=== PATIENT | female | born 1995 | race Caucasian/White ===

== ENCOUNTER 2021-03-04 10:55 | Emergency (ER) | payer OTHER ==
[~2021-03-04 10:55] MED LIST: IMITREX50 MG PO; ONDANSETRON ODT4 MG PO
[2021-03-04] MEDS ORDERED: IBUPROFEN600 MG PO (14:22)
[2021-03-04] MEDS ORDERED: DELSYM30 MG/5 ML PO (14:22)
[2021-03-04] MEDS ORDERED: ZOFRAN4 MG PO (14:22)
== END 2021-03-04 14:30 | disposition home or self-care (01) ==
LOC: ER1 10:55
DX: J06.9 Acute upper respiratory infection, unspecified (principal); F17.210 Nicotine dependence, cigarettes, uncomplicated; Z90.89 Acquired absence of other organs; Z20.822 Contact with and (suspected) exposure to COVID-19
CPT/HCPCS: 99283; U0002

== ENCOUNTER 2021-03-21 07:15 | Observation (INO) | payer OTHER ==
[~2021-03-21] VITALS: Ht 167.6 cm; Wt 52.2 kg
[~2021-03-21 07:15] MED LIST changes: +DELSYM30 MG/5 ML PO; +IBUPROFEN600 MG PO; +ZOFRAN4 MG PO
[2021-03-21 08:20] LABS: HEMOGLOBIN 12.5 gm/dl (12.3-15.3); RED BLOOD COUNT 4.48 M/UL (4.00-5.10); WHITE BLOOD COUNT 6.6 K/UL (4.5-11.0)
[2021-03-21 08:46] LABS: BUN/CREATININE RATIO 16 (0-10)
[2021-03-23] MEDS ORDERED: IBUPROFEN600 MG PO (14:27)
== END 2021-03-23 15:40 | disposition home or self-care (01) ==
LOC: ER1 07:15 → CDU 10:50 → M/S 03-22 18:19
PROVIDERS: Nurse Practitioner; ADMIT Surgery
DX: J93.83 Other pneumothorax (principal); F17.210 Nicotine dependence, cigarettes, uncomplicated; Z20.822 Contact with and (suspected) exposure to COVID-19; Z79.899 Other long term (current) drug therapy
CPT/HCPCS: 71045; 71046; 80053; 80307; 81001; 82550; 82553; 83605; 83690; 84484; 84703; 85025; 87086; 93005; 94760; 99285; G0378; U0002

== ENCOUNTER → 2021-03-29 | Outpatient (CLI) | payer OTHER | LOC: KOH-I 12:25 | DX: J93.83 Other pneumothorax (principal) | CPT/HCPCS: 71046 ==

== ENCOUNTER 2022-02-16 02:03 | Emergency (ER) | payer OTHER ==
[2022-02-16] MEDS ORDERED: AMOX TR-K CLV1 EAC4 PO (04:41)
[2022-02-16] MEDS ORDERED: IBU800 MG PO (04:50)
== END 2022-02-16 05:02 | disposition home or self-care (01) ==
LOC: ER1 02:03
DX: S02.40DA Maxillary fracture, left side, initial encounter for closed fracture (principal); F17.210 Nicotine dependence, cigarettes, uncomplicated; Y04.0XXA Assault by unarmed brawl or fight, initial encounter
CPT/HCPCS: 70450; 70486; 72125; 99284